=== PATIENT | male | born 1960 | race Caucasian/White ===

== ENCOUNTER → 2018-05-31 | Outpatient (CLI) | payer BC ==
[2018-05-31 20:19] LABS: BASO % 0.6 % (0.0-1.0); EOS # 0.1 10^3/uL (0.0-0.50); HEMATOCRIT 40.8 % (42.0-52.0); HEMOGLOBIN 13.9 g/dl (13.5-17.5); IMMATURE GRANULOCYTE % 0.3 % (0-3.0); LYMPH % 29.8 % (24.0-44.0); MEAN CORPUSCULAR HEMOGLOBIN 29.4 pg (27.0-33.0); MEAN CORPUSCULAR HGB CONC 34.1 g/dl (32.0-36.5); MEAN CORPUSCULAR VOLUME 86.4 fl (80.0-96.0); MONO # 0.5 10^3/uL (0.0-0.8); MONO % 7.4 % (0.0-5.0); NEUTROPHILS # 4.1 10^3/uL (1.8-7.7); NEUTROPHILS % 60.9 % (36.0-66.0); PLATELET COUNT, AUTOMATED 278 10^3/uL (150-450); RED BLOOD COUNT 4.72 10^6/uL (4.30-6.10); RED CELL DISTRIBUTION WIDTH 12.4 % (11.5-14.5); WHITE BLOOD COUNT 6.8 10^3/uL (4.0-10.0)
== END ==
LOC: M ADAMS 12:53
DX: J20.9 Acute bronchitis, unspecified (principal)
CPT/HCPCS: 85025

== ENCOUNTER 2018-10-26 20:10 | Emergency (ER) | payer BC ==
[~2018-10-26] VITALS: Ht 180.3 cm; Wt 85.5 kg
[2018-10-26] MEDS ORDERED: DOXYCYCLINE HYCLATE 100 MG TAB PO ONE (22:15)
[2018-10-26 22:23] VITALS: BP 155/106
== END 2018-10-26 22:26 | disposition home or self-care (01) ==
LOC: M ED 20:10
DX: S30.863A Insect bite (nonvenomous) of scrotum and testes, initial encounter (principal); X58.XXXA Exposure to other specified factors, initial encounter; Y92.9 Unspecified place or not applicable; Y93.9 Activity, unspecified; Y99.9 Unspecified external cause status

== ENCOUNTER 2025-01-13 18:08 | Emergency (ER) | payer BC ==
[~2025-01-13] VITALS: Ht 180.3 cm; Wt 85.9 kg
[2025-01-13 18:10] VITALS: TEMP 98.4
[2025-01-13 19:49] VITALS: BP 150/82; O2SAT 100
== END 2025-01-13 20:57 | disposition left against medical advice (07) ==
LOC: M ED 18:08
DX: Z53.21 Procedure and treatment not carried out due to patient leaving prior to being seen by health care provider (principal)